=== PATIENT | male | born 1975 | race Two or more races ===

== ENCOUNTER 2019-03-08 11:39 | Emergency (ER) | payer SELFPAY ==
[~2019-03-08] VITALS: Ht 175.3 cm; Wt 82.0 kg
[2019-03-08 11:44] VITALS: BP 149/96
--- NOTE | 2019-03-08 12:11 | NUR ---
THIS IS A 44 YEAR OLD MALE WHO STATES HE "RELAPSE FROM DRUGS AND ETOH". PT STATES HE WENT TO [facility] AND THEY DID NOT HELP HIM.
[2019-03-08] MEDS ORDERED: GABA300C10 PO (12:12)
--- NOTE | 2019-03-08 13:18 | NUR ---
COMMUNITY RESOURCE LIST GIVEN TO PT
--- NOTE | 2019-03-08 13:29 | NUR ---
Patient/Caregiver given discharge instructions and they have confirmed that they understand the instructions. Patient ambulatory with steady gait.
== END 2019-03-08 13:32 | disposition home or self-care (01) ==
LOC: ED 13:20
DX: F10.129 Alcohol abuse with intoxication, unspecified (principal); Z72.9 Problem related to lifestyle, unspecified
CPT/HCPCS: 99283